=== PATIENT | male | born 1965 | race Two or more races ===

== ENCOUNTER 2021-12-02 18:32 | Inpatient (IN) | payer OTHER ==
[2021-12-02] MEDS ORDERED: RESTORIL15 MG (19:04)
[2021-12-02] MEDS ORDERED: OLANZAPINE10 MG (19:04)
[2021-12-02] MEDS ORDERED: LOSARTAN POTASS50 MG (19:04)
[2021-12-02] MEDS ORDERED: LORAZEPAM0.5 MG (19:04)
[2021-12-02] MEDS ORDERED: TRAZODONE HCL150 MG (19:04)
[2021-12-12] MEDS ORDERED: LEVOFLOXACIN750 MG PO (11:29)
[2021-12-12] MEDS ORDERED: METRONIDAZOLE500 MG PO (11:29)
[2021-12-12] MEDS ORDERED: PROTONIX40 MG PO (11:30)
== END 2021-12-12 12:03 | disposition home or self-care (01) | DRG 394 ==
LOC: ER 18:32 → SURH 12-03 15:27
PROVIDERS: ADMIT Surgery; ATTEND Surgery
PROC: BW21YZZ Computerized Tomography (CT Scan) of Abdomen and Pelvis using Other Contrast (ICD-10-PCS; principal; 2021-12-02)
PROC: 02HV33Z Insertion of Infusion Device into Superior Vena Cava, Percutaneous Approach (ICD-10-PCS; 2021-12-04)
PROC: BW21YZZ Computerized Tomography (CT Scan) of Abdomen and Pelvis using Other Contrast (ICD-10-PCS; 2021-12-08)
DX: K63.2 Fistula of intestine (principal); K57.20 Diverticulitis of large intestine with perforation and abscess without bleeding; B96.29 Other Escherichia coli [E. coli] as the cause of diseases classified elsewhere; B96.6 Bacteroides fragilis [B. fragilis] as the cause of diseases classified elsewhere; L08.89 Other specified local infections of the skin and subcutaneous tissue; F20.9 Schizophrenia, unspecified; Z20.822 Contact with and (suspected) exposure to COVID-19

== ENCOUNTER 2022-03-29 09:45 | Inpatient (IN) | payer OTHER ==
[~2022-03-29] VITALS: Ht 167.6 cm; Wt 61.2 kg
[~2022-03-29 09:45] MED LIST: LEVOFLOXACIN750 MG PO; LORAZEPAM0.5 MG PO; LOSARTAN POTASS50 MG; METRONIDAZOLE500 MG PO; OLANZAPINE10 MG; PROTONIX40 MG PO; RESTORIL15 MG; TRAZODONE HCL150 MG
[2022-03-29] MEDS ORDERED: ZOCOR20 MG PO (13:20)
[2022-03-29] MEDS ORDERED: ZYPREXA10 MG PO (13:21)
[2022-03-29] MEDS ORDERED: TAMS0.4C PO (13:21)
[2022-04-12] MEDS ORDERED: LAMOTRIGINE25 M1 (10:11)
[2022-04-12] MEDS ORDERED: ATORVASTATIN CA20 MG (10:11)
[2022-04-12] MEDS ORDERED: ATENOLOL25 MG (10:11)
[2022-04-12] MEDS ORDERED: PANTOPRAZOLE SO40 MG (10:11)
[2022-04-12] MEDS ORDERED: PERCOCET 5-3251 EACH PO (15:33)
== END 2022-04-12 23:17 | disposition home or self-care (01) | DRG 330 ==
LOC: SURH 04-02 07:00 → SURG 04-09 08:00 → O/R 04-09 08:00 → SURG 04-09 20:47
PROVIDERS: ADMIT Surgery; ATTEND Surgery
PROC: 0DBP4ZZ Excision of Rectum, Percutaneous Endoscopic Approach (ICD-10-PCS; 2022-04-09)
PROC: 0DJD8ZZ Inspection of Lower Intestinal Tract, Via Natural or Artificial Opening Endoscopic (ICD-10-PCS; 2022-04-09)
PROC: 0DTN4ZZ Resection of Sigmoid Colon, Percutaneous Endoscopic Approach (ICD-10-PCS; principal; 2022-04-09 15:45)
DX: K57.20 Diverticulitis of large intestine with perforation and abscess without bleeding (principal); K63.2 Fistula of intestine; K64.8 Other hemorrhoids; Z20.822 Contact with and (suspected) exposure to COVID-19